=== PATIENT | female | born 1945 | race Caucasian/White ===

== ENCOUNTER 2017-11-13 11:59 | Outpatient (CLI) | payer OTHER | END 2017-11-13 12:06 | disposition home or self-care (01) | LOC: MAMO-SONO 11:59 | DX: Z12.31 Encounter for screening mammogram for malignant neoplasm of breast (principal); Z87.898 Personal history of other specified conditions ==

== ENCOUNTER → 2017-11-13 | Outpatient (CLI) | payer OTHER ==
[~2017-11-13] MED LIST: AMOX1TAB12 PO
== END | disposition home or self-care (01) ==
LOC: EDBD 10:57 → NUCLEAR 10:57
DX: M81.0 Age-related osteoporosis without current pathological fracture (principal)

== ENCOUNTER → 2017-11-25 | Day surgery (SDC) | payer OTHER | END | disposition home or self-care (01) | LOC: AMB-ENDOS 06:30 | DX: K44.9 Diaphragmatic hernia without obstruction or gangrene (principal); K20.8 Other esophagitis ==

== ENCOUNTER 2018-08-09 18:18 | Emergency (ER) | payer OTHER ==
[~2018-08-09] VITALS: Ht 160 cm; Wt 72.6 kg
[2018-08-09] MEDS ORDERED: ZITHROMAX500 MG PO (20:04)
[2018-08-09] MEDS ORDERED: TUSSIONEX PENN115 ML PO (20:04)
[2018-08-09] MEDS ORDERED: PREDNISONE10 MG PO (20:06)
== END 2018-08-09 20:47 | disposition home or self-care (01) ==
LOC: ER 18:18
DX: J40 Bronchitis, not specified as acute or chronic (principal)

== ENCOUNTER → 2018-11-16 | Outpatient (CLI) | payer OTHER ==
[~2018-11-16] MED LIST changes: +PREDNISONE10 MG PO; +TUSSIONEX PENN115 ML PO; +ZITHROMAX500 MG PO
== END | disposition home or self-care (01) ==
LOC: RAD 12:05 → MAMO-SONO 12:05
DX: Z12.31 Encounter for screening mammogram for malignant neoplasm of breast (principal); Z87.898 Personal history of other specified conditions; N60.11 Diffuse cystic mastopathy of right breast; N60.12 Diffuse cystic mastopathy of left breast; M25.562 Pain in left knee; M25.561 Pain in right knee

== ENCOUNTER → 2018-12-10 | Outpatient (CLI) | payer OTHER | END | disposition home or self-care (01) | LOC: SONOGRAMA 12:42 | DX: N60.11 Diffuse cystic mastopathy of right breast (principal); N60.12 Diffuse cystic mastopathy of left breast; N63.21 Unspecified lump in the left breast, upper outer quadrant ==

== ENCOUNTER → 2020-09-24 | Outpatient (CLI) | payer OTHER | END | disposition home or self-care (01) | LOC: TOM 09:15 | PROVIDERS: ATTEND Urology | DX: N28.1 Cyst of kidney, acquired (principal) | CPT/HCPCS: 74160; Q9965 ==

== ENCOUNTER 2020-10-25 10:23 | Outpatient (CLI) | payer OTHER | END 2020-10-25 10:31 | disposition home or self-care (01) | LOC: MRI 10:23 | PROVIDERS: ATTEND Neurological Surgery | DX: M48.04 Spinal stenosis, thoracic region (principal) | CPT/HCPCS: 72146 ==

== ENCOUNTER 2022-09-01 10:16 | Outpatient (CLI) | payer OTHER ==
[~2022-09-01 10:16] MED LIST changes: +DUI500 PO; +ELIQUIS2.5 MG PO; +PERCOCET 5-3251 EACH PO
== END 2022-09-01 10:30 | disposition home or self-care (01) ==
LOC: MAMO-SONO 10:16
PROVIDERS: ATTEND Obstetrics & Gynecology
DX: Z12.31 Encounter for screening mammogram for malignant neoplasm of breast (principal); N60.11 Diffuse cystic mastopathy of right breast; N60.12 Diffuse cystic mastopathy of left breast

== ENCOUNTER 2022-09-22 13:00 | Outpatient (CLI) | payer OTHER | END 2022-09-22 13:02 | disposition home or self-care (01) | LOC: RAD 13:00 | PROVIDERS: ATTEND Internal Medicine Sports Medicine | DX: M25.562 Pain in left knee (principal) ==

== ENCOUNTER 2022-10-07 12:02 | Outpatient (CLI) | payer OTHER | END 2022-10-07 12:14 | disposition home or self-care (01) | LOC: MRI 12:02 | PROVIDERS: ATTEND Internal Medicine Sports Medicine | DX: M25.562 Pain in left knee (principal) | CPT/HCPCS: 73721 ==

== ENCOUNTER 2023-03-26 14:03 | Emergency (ER) | payer OTHER ==
[~2023-03-26] VITALS: Ht 190.5 cm; Wt 68.0 kg
[2023-03-26] MEDS ORDERED: NEURONTIN300 MG PO (14:28)
== END 2023-03-26 16:37 | disposition left against medical advice (07) ==
LOC: ER 14:03
DX: Z53.21 Procedure and treatment not carried out due to patient leaving prior to being seen by health care provider (principal)

== ENCOUNTER 2023-08-13 09:29 | Outpatient (CLI) | payer OTHER ==
[~2023-08-13 09:29] MED LIST changes: +NEURONTIN300 MG PO
== END 2023-08-13 09:33 | disposition home or self-care (01) ==
LOC: RAD 09:29
DX: M54.59 Other low back pain (principal); E78.49 Other hyperlipidemia; F01.50 Vascular dementia, unspecified severity, without behavioral disturbance, psychotic disturbance, mood disturbance, and anxiety; R26.89 Other abnormalities of gait and mobility
CPT/HCPCS: 70553

== ENCOUNTER 2023-09-09 07:12 | Emergency (ER) | payer OTHER ==
[~2023-09-09] VITALS: Ht 160 cm; Wt 68.0 kg
[2023-09-09] MEDS ORDERED: KETOROLAC TROMETHAMINE 60 MG VIAL IM STA (08:19)
[2023-09-09 08:46] LABS: HEMATOCRIT 38.1 % (36.0-45.00); HEMOGLOBIN 12.4 g/dL (12.0-15.00); MEAN CELL VOLUME 84.9 fL (80.00-100.00); MEAN CORPUSCULAR HEMOGLOBIN 27.5 pg (27.00-32.0); MEAN CORPUSCULAR HGB CONC 32.5 g/dl (32.0-36.0); PLATELET COUNT 251 K/uL (150-450); RED BLOOD COUNT 4.49 M/uL (4.00-6.00); RED CELL DISTRIBUTION WIDTH 14.4 % (11.5-14.5)
[2023-09-09 09:21] LABS: CALCIUM 9.7 mg/dL (8.5-10.1); CREATININE SERUM 0.83 mg/dL (0.55-1.02); GFR 67.2; POTASSIUM 4.97 mEq/L (3.5-5.1)
[2023-09-09 10:15] LABS: PH,URINE 5.5 (5.0-8.0); URINE APPEARANCE Clear; URINE BILIRRUBIN Negative (NEGATIVE); URINE BLOOD Negative; URINE COLOR Yellow; URINE GLUCOSE Negative (NEGATIVE); URINE LEUKOCYTE Small; URINE NITRATE Negative; URINE PROTEIN Trace (NEGATIVE); URINE UROBILINOGEN 0.2 E.U./dl
[2023-09-09 10:22] LABS: URINE BACTERIA 723.1 uL (0.0-1933); URINE EPITHELIAL CELLS 36.9 uL (0.0-38.8); URINE RBC 6.4 uL (0.0-20.8); URINE WBC 18.8 uL (0.0-23.2)
[2023-09-09 11:02] LABS: URINE MUCUS MODERATE
== END 2023-09-09 11:24 | disposition home or self-care (01) ==
LOC: ER 07:12
PROVIDERS: General Practice
DX: R10.31 Right lower quadrant pain (principal); G62.9 Polyneuropathy, unspecified; M17.31 Unilateral post-traumatic osteoarthritis, right knee; K57.30 Diverticulosis of large intestine without perforation or abscess without bleeding
CPT/HCPCS: 36415; 73502; 74176; 96372; 99284; J1885

== ENCOUNTER 2023-10-05 14:04 | Emergency (ER) | payer OTHER ==
[~2023-10-05] VITALS: Ht 160 cm; Wt 68.0 kg
[2023-10-05] MEDS ORDERED: TETANUS & DIPHTHERIA TOX,ADULT 0.5 ML VIAL IM ONE (14:45)
[2023-10-05] MEDS ORDERED: CEFTRIAXONE SODIUM 1,000 MG VIAL IV ONE (15:45)
== END 2023-10-05 16:12 | disposition home or self-care (01) ==
LOC: ER 14:04
DX: S61.315A Laceration without foreign body of left ring finger with damage to nail, initial encounter (principal); X58.XXXA Exposure to other specified factors, initial encounter; Y93.89 Activity, other specified; Y92.098 Other place in other non-institutional residence as the place of occurrence of the external cause; Y99.8 Other external cause status
CPT/HCPCS: 12002; 29130; 73130; 96365; 99283; J0696

== ENCOUNTER 2024-02-26 09:16 | Outpatient (CLI) | payer OTHER | END 2024-02-26 09:24 | disposition home or self-care (01) | LOC: MAMO-SONO 09:16 | PROVIDERS: ATTEND Obstetrics & Gynecology | DX: Z12.31 Encounter for screening mammogram for malignant neoplasm of breast (principal); N60.11 Diffuse cystic mastopathy of right breast; N60.12 Diffuse cystic mastopathy of left breast; R10.9 Unspecified abdominal pain; N95.1 Menopausal and female climacteric states ==

== ENCOUNTER 2024-06-16 10:46 | Outpatient (CLI) | payer OTHER | END 2024-06-16 10:55 | disposition home or self-care (01) | LOC: SONOGRAMA 10:46 | PROVIDERS: ATTEND Obstetrics & Gynecology | DX: R10.9 Unspecified abdominal pain (principal); N92.1 Excessive and frequent menstruation with irregular cycle ==

== ENCOUNTER 2025-02-13 12:50 | Outpatient (CLI) | payer OTHER | END 2025-02-13 12:54 | disposition home or self-care (01) | LOC: LAB 12:50 | PROVIDERS: ATTEND Internal Medicine Sports Medicine | DX: N30.00 Acute cystitis without hematuria (principal) ==